=== PATIENT | male | born 1950 | race Caucasian/White ===

== ENCOUNTER 2017-01-23 09:00 | Outpatient (CLI) | payer BC ==
[~2017-01-23] VITALS: Ht 177.8 cm; Wt 77.1 kg
[~2017-01-23 09:00] MED LIST: [UNRECOGNIZED DRUG - REMARK]
[2017-01-23] MEDS ORDERED: FINA5TAB6 PO (09:12)
== END 2017-01-23 09:24 ==
LOC: PREOP 09:00
PROVIDERS: ATTEND Surgery
DX: Z01.818 Encounter for other preprocedural examination (principal); Z12.11 Encounter for screening for malignant neoplasm of colon

== ENCOUNTER 2017-01-27 09:23 | Day surgery (SDC) | payer BC ==
[~2017-01-27 09:23] MED LIST changes: +FINA5TAB6 PO
--- OUTSIDE RECORDS SUMMARY | 2017-01-27 09:26 | XMS REPORT | Continuity of Care Document ---
Author Author [facility] Organization [facility] Address Unknown Phone Unavailable Allergies Active Description Code Type Severity Reaction Onset Reported/Identified Relationship to Patient Clinical Status Yes No Known Drug Allergies [id number] Drug Allergy Unknown N/ A 08/13/2015 Medications Problems Date Dx Coded Attending Type Code Diagnosis Diagnosed By 08/14/2015 GOPI FELICIANO, JOJO Fine Ot H81.13 BENIGN PAROXYSMAL VERTIGO, BILATERAL 08/14/2015 GOPI FELICIANO, JOJO T Ot R11.2 NAUSEA WITH VOMITING, UNSPECIFIED 08/15/2015 GOPI FELICIANO, JJOO T Ot H81.13 BENIGN PAROXYSMAL VERTIGO, BILATERAL 08/15/2015 GOPI FELICIANO, JOJO T Ot R11.2 NAUSEA WITH VOMITING, UNSPECIFIED 08/29/2015 GOPI FELICIANO, JOJO T Ot H81.13 BENIGN PAROXYSMAL VERTIGO, BILATERAL 08/29/2015 GOPI FELICIANO, JOJO T Ot R11.2 NAUSEA WITH VOMITING, UNSPECIFIED 01/23/2017 PARRIS PAPPAS DO Ot Z01.818 ENCOUNTER FOR OTHER PREPROCEDURAL EXAMIN 01/23/2017 PARRIS PAPPAS DO Ot Z12.11 ENCOUNTER FOR SCREENING FOR MALIGNANT NE Procedures Results Encounters ACCT No. Visit Date/Time Discharge Status Pt. Type Provider Facility Loc./Unit Complaint [id number] 01/23/2017 09:00:00 2016 09:24:00 DIS Outpatient PARRIS PAPPAS DO [facility] PREOP COLONOSCOPY [id number] 08/13/2015 20:08:00 2015 02:16:00 DIS Emergency JOJO NGUYỄN MD [facility] ER [id number] 01/27/2017 10:00:00 PEN Preadmit PARRIS PAPPAS DO [facility] ENDO SCREENING/HX POLYPS
[2017-01-27 09:30] VITALS: BP 129/75
[2017-01-27] MEDS ORDERED: LACTATED RINGERS 1,000 ML IV STA (09:30)
[2017-01-27] MEDS ORDERED: PROPOFOL INJECTION 50 ML IV ONE (10:54)
[2017-01-27] MEDS ORDERED: LIDOCAINE PF 2% 5 ML (XYLOCAINE) VIAL ONE (10:54)
--- NOTE | 2017-01-27 11:11 | Progress Note-Pre Operative ---
Pre-Operative Progress Note H&P Reviewed The H&P was reviewed, patient examined and no changes noted. Date Seen by Provider: Jan 27, 2017 Time Seen by Provider: 11:10 Date H&P Reviewed: Jan 27, 2017 Time H&P Reviewed: 11:10 Pre-Operative Diagnosis: screening colonoscopy PARRIS PAPPAS DO Jan 27, 2017 11:11 am
[2017-01-27 12:00] VITALS: BP 115/77
--- NOTE | 2017-01-27 12:00 | Progress Note-Post Operative ---
Post-Operative Progess Note Surgeon (s)/Chorus Master (s) Surgeon PARRIS PAPPAS DO Chorus Master: na Pre-Operative Diagnosis screening colonoscopy Post-Operative Diagnosis diverticulosis Procedure & Operative Findings Date of Procedure 01/27/17 Procedure Performed/Findings colonoscopy Anesthesia Type per inspector hairspring truing Estimated Blood Loss Estimated blood loss (mL): none Specimens/Packing Specimens Removed na PARRIS PAPPAS DO Jan 27, 2017 12:00 pm
--- NOTE | 2017-01-27 12:01 | Discharge Inst-Simple/Standard ---
Discharge Inst-Standard Patient Instructions/Follow Up Plan of Care/Instructions/FU: repeat colonoscopy in 5 years, if any problems before that be seen at that time. Activity as Tolerated: Yes Discharge Diet: Regular Diet (high fiber) PARRIS PAPPAS DO Jan 27, 2017 12:01 pm
[2017-01-27 12:30] VITALS: BP 118/77
[2017-01-27 12:36] VITALS: BP 118/77
--- NOTE | 2017-01-28 00:53 | OPERATIVE REPORT ---
DATE OF SERVICE: 01/27/2017 PREOPERATIVE DIAGNOSIS: Screening colonoscopy. POSTOPERATIVE DIAGNOSIS: Diverticulosis. PROCEDURE: Colonoscopy. SURGEON: Parris Bose DO ANESTHESIA: Per PROJECT ANALYST. ESTIMATED BLOOD LOSS: None. COMPLICATIONS: None. INDICATIONS: The patient is a 66-year-old male with a history of colon polyps. He understands risks and benefits of procedure and wished to proceed with procedure. Consent was signed in the chart. PROCEDURE: The patient was taken to the endoscopy suite, placed in left lateral recumbent position. Timeout was performed. Digital rectal exam was performed and there were no palpable polyps, mass or ulcerations. The scope was inserted in the rectum and advanced all the way to the cecum with minimal difficulty. Prep was adequate. Scope was then slowly retracted back. There were no polyps, masses or ulcerations in the cecum, ascending, transverse and descending colon. In the sigmoid colon, there was a small amount of diverticulosis. There were no polyps, masses or ulcerations. Once in the rectum, scope was also retroflexed, noting no other pathology. Scope was returned to its normal position, slowly withdrawn until completely removed. RECOMMENDATIONS: The patient will need repeat colonoscopy in 5 years due to history of colon polyps. If he has any problems prior to that, should be reevaluated at that time. The patient with diverticulosis, recommend high fiber diet. The patient can follow up on an as needed basis. Job ID: [id number] DocumentID: [id number] Dictated Date: 01/27/2017 14:18:05 Associate Professor Of Church Music Date: 01/28/2017 00:31:20 Dictated By: PARRIS BOSE DO
== END 2017-01-27 12:40 | disposition home or self-care (01) ==
LOC: ENDO 09:23
PROVIDERS: ATTEND Surgery
DX: Z12.11 Encounter for screening for malignant neoplasm of colon (principal); K57.30 Diverticulosis of large intestine without perforation or abscess without bleeding; Z86.010 Personal history of colon polyps; Z87.891 Personal history of nicotine dependence

== ENCOUNTER → 2021-10-30 | Outpatient (CLI) | payer BC ==
[~2021-10-30] VITALS: Ht 177.8 cm; Wt 76.7 kg
[~2021-10-30] MED LIST changes: +ALPR0.5T7 PO
== END ==
LOC: PREOP 05:34
PROVIDERS: ATTEND Surgery
DX: Z01.818 Encounter for other preprocedural examination (principal); Z12.11 Encounter for screening for malignant neoplasm of colon

== ENCOUNTER 2021-11-12 09:29 | Day surgery (SDC) | payer BC ==
[~2021-11-12] VITALS: Ht 178 cm; Wt 76.7 kg
[2021-11-12] MEDS ORDERED: LACTATED RINGERS 1,000 ML IV STA (09:32)
[2021-11-12 09:40] VITALS: BP 150/84
[2021-11-12] MEDS ORDERED: PROPOFOL INJECTION 50 ML IV ONE (10:01)
[2021-11-12 10:27] VITALS: BP 94/55
[2021-11-12 10:32] VITALS: BP 98/58
[2021-11-12 10:35] VITALS: BP 131/82
--- NOTE | 2021-11-12 10:37 | Progress Note-Post Operative ---
Post-Operative Progess Note Surgeon (s)/Cap Lining Machine Operator (s) Surgeon PARRIS PAPPAS DO Cap Lining Machine Operator: na Pre-Operative Diagnosis screening colonoscopy Post-Operative Diagnosis diverticulosis Procedure & Operative Findings Date of Procedure 11/12/21 Procedure Performed/Findings colonoscopy Anesthesia Type per cotton presser Estimated Blood Loss Estimated blood loss (mL): none Specimens/Packing Specimens Removed na PARRIS PAPPAS DO Nov 12, 2021 10:37
--- NOTE | 2021-11-12 10:39 | Discharge Inst-Simple/Standard ---
Discharge Inst-Standard Patient Instructions/Follow Up Plan of Care/Instructions/FU: 10 years rambo, if any issues before that be seen at that time. Activity as Tolerated: Yes Discharge Diet: Regular Diet (high fiber) PARRIS PAPPAS DO Nov 12, 2021 10:39
[2021-11-12 10:55] VITALS: BP 120/88
--- NOTE | 2021-11-12 12:41 | Anesthesia-General Post-Op ---
MAC Patient Condition Mental Status/LOC: Same as Preop Cardiovascular: Satisfactory Nausea/Vomiting: Absent Respiratory: Satisfactory Pain: Controlled Complications: Absent Post Op Complications Complications None Follow Up Care/Instructions Patient Instructions None needed. Anesthesiology Discharge Order Discharge Order Patient is doing well, no complaints, stable vital signs, no apparent adverse anesthesia problems. No complications reported per nursing. RUDY BARR CRNA Nov 12, 2021 12:41
--- NOTE | 2021-11-12 14:36 | OPERATIVE REPORT ---
DATE OF SERVICE: 11/12/2021 PREOPERATIVE DIAGNOSIS: Screening colonoscopy. POSTOPERATIVE DIAGNOSIS: Diverticulosis. PROCEDURE: Colonoscopy. SURGEON: Parris Bose DO ANESTHESIA: Per GAS CHECK PAD MAKER. ESTIMATED BLOOD LOSS: None. COMPLICATIONS: None. INDICATIONS: The patient is a 70-year-old male needing screening colonoscopy. He understands risks and benefits of procedure and wishes to proceed. Consent was signed in the chart. DESCRIPTION OF PROCEDURE: The patient was taken to the endoscopy suite, placed in left lateral recumbent position. Timeout was performed. Digital rectal exam was performed. No palpable polyps, masses or ulcerations. Scope was inserted in the rectum and advanced all the way to cecum with minimal difficulty. Prep was adequate with irrigation and suction. Scope was then slowly retracted back. No polyps, masses or ulcerations in the cecum, ascending, transverse, descending colon. In the sigmoid colon, diverticulosis present. No other pathology. Scope was continuously retracted back into the rectum, where it was also retroflexed noting no other pathology. Scope was returned to its normal position, slowly withdrawn until completely removed. The patient tolerated procedure well without any complications, taken to recovery room in stable condition. RECOMMENDATIONS: The patient recommended high fiber diet. We will need repeat colonoscopy in 10 years unless family history of colon cancer or personal history of polyps, which would then be 5 years. Any issues before that be seen at that time. Job ID: [id number] DocumentID: [id number] Dictated Date: 11/12/2021 10:41:56 Automobile Upholsterer Apprentice Date: 11/12/2021 14:34:52 Dictated By: PARRIS BOSE DO MTDD
== END 2021-11-12 11:10 | disposition home or self-care (01) ==
LOC: ENDO 09:29
PROVIDERS: ATTEND Surgery
DX: Z12.11 Encounter for screening for malignant neoplasm of colon (principal); K57.30 Diverticulosis of large intestine without perforation or abscess without bleeding; Z87.891 Personal history of nicotine dependence

== ENCOUNTER → 2021-11-14 | Outpatient (CLI) | payer BC ==
--- NOTE | 2021-11-14 18:55 | Diagnostic Imaging Report ---
INDICATION: Left leg mass. TECHNIQUE: Multiple real-time grayscale images were obtained of the left leg in various projections. FINDINGS: There is a predominantly anechoic area with some internal echoes in the area of the palpable abnormality measuring 3.7 x 1.3 x 3.7 cm. There is some vascularity seen peripherally. Right medial knee area was also scanned for comparison, which was unremarkable IMPRESSION: Anechoic fluid collection in the medial left knee. This is nonspecific, may reflect seroma or possibly resolving hematoma. Recommend clinical correlation and followup imaging to ensure resolution as warranted. Dictated by: Dictated on workstation # [id number]
== END ==
LOC: RAD 12:15
PROVIDERS: ATTEND Internal Medicine
DX: R22.42 Localized swelling, mass and lump, left lower limb (principal)
CPT/HCPCS: 76881